=== PATIENT | female | born 1980 | race Two or more races ===

== ENCOUNTER → 2024-10-14 | Outpatient (CLI) | payer BC, SELFPAY ==
--- NOTE | 2024-10-14 08:15 | XR_ITS ---
Examination: Screening digital mammography, bilateral Computer aided detection 3-D breast Tomosynthesis, bilateral Date and time of exam: October 14, 2024 0805 hours No priors Indication: Screening Technique: Nonmagnified MLO, CC views of the breasts to been obtained, reconstructed from 3-D Tomosynthesis images. R2 computer aided detection program utilized for evaluation of suspicious masses and/or abnormal calcifications. 3-D Tomosynthesis images obtained. Findings: The breasts are heterogeneously dense, which may obscure small masses 28 mm focal asymmetry upper inner right breast Benign calcifications Impression: BI-RADS Category 0: Incomplete: Need additional imaging evaluation Recommend follow-up spot tomographic views of 28 mm focal asymmetry upper inner right breast as well as bilateral breast sonography to complete the workup.
== END | disposition home or self-care (01) ==
LOC: CDIM 07:48
PROVIDERS: Referring Provider Family Medicine; Visit Provider Family Medicine
DX: Z12.31 Encounter for screening mammogram for malignant neoplasm of breast (principal); R92.333 Mammographic heterogeneous density, bilateral breasts; R92.1 Mammographic calcification found on diagnostic imaging of breast; N64.89 Other specified disorders of breast
CPT/HCPCS: 77063; 77067

== ENCOUNTER 2024-11-03 18:46 | Emergency (ER) | payer BC, SELFPAY ==
[2024-11-03 18:47] VITALS: BMI 32.9
[2024-11-03 19:24] VITALS: BP 120/75; PULSE 99; RESP 18; TEMP 36.9; O2SAT 98
--- NOTE | 2024-11-03 19:51 | XR_ITS ---
Examination: Right knee 4 views TECHNIQUE: AP oblique and lateral axial right knee 4 views Date and time: November 03, 20242000 hours INDICATIONS: Twisting injury to the knee today, knee pain. FINDINGS: No fracture or dislocation. Mild narrowing medial joint space Small knee effusion IMPRESSION: No fracture Small knee effusion
--- NOTE | 2024-11-03 21:09 | PD.EDLOWEX ---
Lower Extremity Injury RME/HPI General Chief Complaint: Extremity Injury, Lower Stated Complaint: POSS R) KNEE DISLOCATION Time Seen by Provider: 11/03/24 19:06 Arrival date/time: 11/03/24 18:46 RME / HPI RME / HPI Narrative: 44-year-old female presents to the ED with a complaint of right knee pain secondary to an injury she sustained just prior to arrival. She states she jumped out of the bed of the pickup landing on her foot, causing her right knee to give out. She fell to the side and denies striking her knee on the ground. She is complaining of swelling and pain underneath the kneecap. She has painful weightbearing but denies any numbness or tingling distally. Related Data Previous Rx's ?Medication ?Instructions ?Recorded ibuprofen 600 mg tablet 600 mg PO Q8H PRN pain #30 tabs 11/03/24 Allergies Allergy/AdvReac Type Severity Reaction Status Date / Time No Known Allergies Allergy Verified 11/03/24 18:49 Review of Systems Review of Systems Systems Reviewed: All systems reviewed, normal except as documented Past Medical History Past Medical History CARDIAC: Negative Congestive Heart Failure RESPIRATORY: Negative Chronic Obstructive Pulmonary Disease (COPD) GENITOURINARY: Negative Renal Disease ENDOCRINE: Negative Diabetes Mellitus Type 1 or Diabetes Mellitus Type 2 Social History SMOKING STATUS: Never smoker ED Exam Narrative Physical exam: A&O, afebrile and non-toxic appearing 44-year-old female, no acute distress. Lung are clear, RRR, Abdomen is non-distended. There is no pain with patellar ballottement. No pain to the tibial tuberosity. No pain with medial or lateral stress. Minimal pain with right lateral compartment with mild tenderness. CMS intact distally. Moves all other extremities well. Course Course Course Narrative: Patient was given Toradol 30 mg IM. X-ray of the right knee reveals no fracture or dislocation per radiologist reading. Knee immobilizer was applied and patient was fitted with a pair of crutches prior to discharge. She will be discharged home with a prescription for Motrin 600 mg. Quality Measures none Orders Category Date Time Status Apply knee immobilizer NOW Care 11/03/24 21:05 Active XR knee comp RT 4V Stat Exams 11/03/24 19:51 Completed Ketorolac Inj [Toradol Inj] Med 11/03/24 19:51 Pending 30 mg IM X1 ONE Vital Signs Vital signs: Vital Signs Temperature 98.4 F 11/03/24 19:24 Pulse Rate 99 11/03/24 19:24 Respiratory Rate 18 11/03/24 19:24 Blood Pressure 120/75 11/03/24 19:24 Pulse Oximetry (%) 98 11/03/24 19:24 Oxygen Delivery Method Room Air 11/03/24 19:24 Extremity Injury, Lower MDM Narrative MDM Narrative:: Symptoms, exam and diagnostic studies are consistent with: Right knee internal derangement. Patient was discharged home in stable condition with a prescription for ibuprofen 600 mg 1 tab p.o. 3 times daily. Patient/family advised to follow-up with their PCP in 24-48 hours. She may need an MRI of the right knee for definitive diagnosis. Encouraged to return to the ED for any new or worsening symptoms. Patient data External records reviewed:: None Clinical information provided by:: patient Social determinants that could affect healthcare access:: none Patient has the following chronic illnesses:: N/A How is presenting disease/condition affected by chronic disease/condition?: no chronic disease Evaluation data The following diagnostics were reviewed and interpreted by me:: radiology exam(s) Lab and/or radiology exams considered but not ordered:: N/A Interpretation Summary: As noted above Medications / Prescriptions Medications or Prescriptions considered but not ordered:: N/A Medication administrations:: Medication Administration History Ketorolac Tromethamine (Ketorolac Inj 60 Mg/2 Ml Vial) 30 mg IM X1 ONE Stop: 11/03/24 19:52 As noted above Consultations Consultation(s) initiated? (list below): No Diagnosis Extremity Injury, Lower Differential Diagnosis: acute internal derangement of knee and other (Tibial plateau fracture, patellar dislocation, medial or lateral collateral ligament strain) Most likely diagnosis given after review of the tests above:: Right knee acute internal derangement. Admission Indicated Admission indicated?: not indicated Explain why admission is indicated or not indicated:: Patient is stable for discharge Admission Request Was there a request for admission?: No Admission Attestation Admission request attestation: N/A Disposition Plan Disposition Plan: Discharge Discharge Attestation Discharge Attestation: The patient and all family members were given an opportunity to ask questions and understood the discharge instructions. Discharge instructions specifically effects, indications for sooner follow up or return to the emergency department, and the expected course of current diagnosis. Patient condition: Stable Discharge Plan Plan Patient Disposition: HOME (Self Care) Discharge Disposition comment: Stable and improved Prescriptions/Referrals Prescriptions/Med Rec: New ibuprofen 600 mg tablet 600 mg PO Q8H PRN (Reason: pain) Qty: 30 0RF Rx Instructions: Do not start taking this medication until Monday. Referrals: Rose Banks MD [Primary Care Provider] - In 1 week Problem List Clinical Impression: Internal derangement of right knee Patient/Caregiver Discharge Instructions Education Materials: ED Crutch Walking, ED Knee Immobilizer, ED Knee Sprain Additional Instructions: Protect from further injury by wearing the knee immobilizer, rest, ice, elevate the right knee to eliminate swelling and pain. Follow-up with your primary care physician. You may need a referral for an MRI and then an community engagement specialist. Return to the ED for any new or worsening symptoms. Print Language: Ukrainian Stand Alone Forms: Charlee Award Info., Work/School Release, Patient Portal Info Letter TERESA/ESTEPHANIA Supervising Physician TERESA/ESTEPHANIA Supervising Physician: Dr Cross
[2024-11-03 21:37] VITALS: BP 114/58; PULSE 75; RESP 16; TEMP 36.8; O2SAT 99
== END 2024-11-03 21:40 | disposition home or self-care (01) ==
PROVIDERS: Emergency Provider Emergency Medicine; PCP Family Medicine
DX: M23.91 Unspecified internal derangement of right knee (principal)
CPT/HCPCS: 73564; 99283

== ENCOUNTER → 2024-11-08 | Outpatient (CLI) | payer BC, SELFPAY ==
--- NOTE | 2024-11-08 08:45 | XR_ITS ---
Examination: Breast ultrasound complete, bilateral Date and time of exam: November 18, 2024 0911 hours INDICATIONS: Mammogram October 14, 2024 28 mm focal asymmetry upper inner right breast Technique: Real-time grayscale ultrasonographic imaging bilateral breasts, including all 4 quadrants as well as nipple retroareolar and axillary regions. Findings: Sonographic images right breast 7:00 cyst 5 x 4 mm No solid nodules Sonographic images left breast 3:00 cyst 4 x 4 millimeter Retroareolar nodule lobular margins 7 x 5 mm IMPRESSION: BI-RADS Category 3: Probably benign findings One additional 6 month left breast sonogram follow-up is needed to document stability of retroareolar nodule left breast
--- NOTE | 2024-11-08 09:45 | XR_ITS ---
Examination: Diagnostic digital mammography, unilateral, right Computer aided detection 3-D breast Tomosynthesis, unilateral Date and time of exam: November 18, 2024 0930 hours INDICATIONS: Mammogram October 14, 2024 28 mm focal asymmetry upper inner right breast Technique: Nonmagnified MLO, CC views of the right breast have been obtained, reconstructed from 3-D Tomosynthesis images. R2 computer aided detection program utilized for evaluation of suspicious masses and/or abnormal calcifications. 3-D Tomosynthesis images obtained. Findings: The breast is heterogeneously dense, which may obscure small masses No suspicious mass is depicted on the spot compression views Impression: BI-RADS category 2: Benign findings Recommend yearly follow-up mammography
== END | disposition home or self-care (01) ==
PROVIDERS: PCP Family Medicine; Referring Provider Family Medicine; Visit Provider Family Medicine
DX: R92.321 Mammographic fibroglandular density, right breast (principal); N63.42 Unspecified lump in left breast, subareolar
CPT/HCPCS: 76641; 77061; 77065; G0279

== ENCOUNTER → 2024-11-12 | Outpatient (CLI) | payer BC, SELFPAY ==
--- NOTE | 2024-11-12 09:30 | XR_ITS ---
Exam: MRI knee without contrast, right Date and time of exam: November 12, 2024 1010 hours INDICATIONS: Injury to the knee November 03, 2024 joint swelling locking instability Technique: Multiple axial, coronal, and sagittal sections on the knee have been obtained. T2-Weighted sagittal, fat-suppressed images, TR 3,500, TE 62, T2 weighted coronal fat-saturated images, TR 3,500, TE 62 Proton density sagittal sections, TR 1800, TE 31. T-1 weighted coronal images, TR 524, TE 13.0 Findings: Medial meniscus anterior horn intact. Medial meniscus, body meniscocapsular separation. Posterior horn medial meniscus meniscocapsular separation. Lateral meniscus anterior horn is intact Lateral meniscus, body is intact Posterior horn lateral meniscus is intact Anterior cruciate ligament complete tear Posterior cruciate ligament appears intact. Knee effusion is large with suprapatellar joint plica Quadriceps and patellar tendons appear intact. There is no evidence of tendinosis. Inflammatory change or fracture of Hoffa's fat pad is not seen. Medial patellar facet demonstrates moderate thinning. Lateral patellar facet cartilage demonstrates moderate thinning. Trochlear cartilage demonstrates moderate thinning. Marrow signal increased posterior proximal lateral tibia and posterior proximal medial tibia. Medial collateral ligament appears intact. Illiotibial band moderate strain Fibular collateral ligament are intact. Biceps femoris tendons appear intact. Medial femoral condylar articular cartilage demonstrates moderate thinning. Lateral femoral condylar articular cartilage demonstratesmoderate thinning. Tibial plateau cartilage demonstrates moderate thinning. Impression: Meniscocapsular separation body and posterior horn medial meniscus Complete tear anterior cruciate ligament Moderate strain iliotibial band
== END | disposition home or self-care (01) ==
PROVIDERS: PCP Family Medicine; Referring Provider Family Medicine; Visit Provider Family Medicine
DX: S83.194A Other dislocation of right knee, initial encounter (principal); S83.511A Sprain of anterior cruciate ligament of right knee, initial encounter; X58.XXXA Exposure to other specified factors, initial encounter
CPT/HCPCS: 73721